=== PATIENT | female | born 1980 | race Two or more races ===

== ENCOUNTER 2018-01-13 00:34 | Emergency (ER) | payer MEDICAID ==
[~2018-01-13] VITALS: Ht 165.1 cm; Wt 77.6 kg
[2018-01-13 02:30] VITALS: BP 133/77
[2018-01-13] MEDS ORDERED: DIPHENHYDRAMINE 50MG CAPSULE PO ONE (03:30)
[2018-01-13] MEDS ORDERED: PREDNISONE 20MG TABLET PO ONE (03:30)
== END 2018-01-13 05:20 | disposition home or self-care (01) ==
LOC: ER 00:34
DX: T78.40XA Allergy, unspecified, initial encounter (principal); X58.XXXA Exposure to other specified factors, initial encounter; Y92.9 Unspecified place or not applicable; R03.0 Elevated blood-pressure reading, without diagnosis of hypertension
CPT/HCPCS: 81025; 99285; J7512; Q0163